=== PATIENT | male | born 1970 | race Caucasian/White ===

== ENCOUNTER 2024-01-26 03:49 | Emergency (ER) | payer BC ==
[2024-01-26] MEDS ORDERED: Boostrix 0.5 ML (Tdap) VIAL (>/=7 yrs of age) ONE (04:11)
[2024-01-26] MEDS ORDERED: Amoxicillin/Potassium Clav 875 MG TAB ONE (04:22)
== END 2024-01-26 04:37 | disposition home or self-care (01) ==
LOC: CSHERS 03:49
DX: S61.011A Laceration without foreign body of right thumb without damage to nail, initial encounter (principal); Z23 Encounter for immunization; E11.9 Type 2 diabetes mellitus without complications; W26.0XXA Contact with knife, initial encounter
CPT/HCPCS: 90471; 90715